=== PATIENT | female | born 2000 | race Caucasian/White ===

== ENCOUNTER 2021-12-28 13:07 | Emergency (ER) | payer BC, OTHER, SELFPAY ==
--- NOTE | ~2021-12-28 | CT_ITS ---
EXAMINATION: CT facial bones wo con DATE: 12/28/2021 14:15 INDICATION: Right eye injury. Patient hit with softball. TECHNIQUE: Computed tomography (CT) of the facial bones was performed without intravenous contrast. T he dose-length product was 336.60 mGy-cm. Automated exposure control and iterative reconstruction ginny hnique were employed. COMPARISON: None FINDINGS: There is moderate right periorbital soft tissue swelling. No evidence for orbital fracture. Lamina papyracea is intact. The mandible is normal with symmetric temporomandibular joints. Visualiz ed aspects of the cervical spine are normal. Paranasal sinuses are pneumatized. No post septal soft t issue abnormality in either orbit. Orbits are symmetric without disconjugate gaze. NaSal bones and pt erygoid plates are within normal limits. IMPRESSION: 1. No acute facial fracture. Moderate right periorbital soft tissue swelling. Reviewed, dictated and finalized at location A. [employer]
[2021-12-28 13:11] VITALS: BP 133/88; PULSE 100; RESP 18; TEMP 37.2; O2SAT 100
--- NOTE | 2021-12-28 14:23 | ED.WOUNDLAC ---
HPI - Wound/Laceration General Chief Complaint: Wound/Laceration <JULIAN Allen Last Filed: 12/28/21 17:38> Stated Complaint: laceration <JULIAN Allen Last Filed: 12/28/21 17:38> Time Seen by Provider: 12/28/21 13:13 <JULIAN Allen Last Filed: 12/28/21 17:38> Source: patient <JULIAN Allen Last Filed: 12/28/21 17:38> Mode of arrival: ambulatory <JULIAN Allen Last Filed: 12/28/21 17:38> Limitations: no limitations <JULIAN Allen Last Filed: 12/28/21 17:38> History of Present Illness HPI narrative: This is a 21 year old female that presents to the ER for injury to the right eye sustained just prior to arrival. Reports she was at practice for softball. A ground ball flew up and hit her right eye. Reports bruising and pain to the area. Also reports a laceration. She is almost due for another tetanus vaccine. Denies pain with EOMs, vision changes, vomiting, numbness, weakness or loss of consciousness. <JULIAN Allen Last Filed: 12/28/21 17:38> Related Data Allergies/Adverse Reactions: Allergies Allergy/AdvReac Type Severity Reaction Status Date / Time bacitracin Allergy Itching Verified 12/28/21 13:14 [From Neosporin ([id number])] neomycin Allergy Itching Verified 12/28/21 13:14 [From Neosporin ([id number])] polymyxin B Allergy Itching Verified 12/28/21 13:14 [From Neosporin ([id number])] <JULIAN Allen Last Filed: 12/28/21 17:38> Review of Systems Review of Systems: CONSTITUTIONAL: Denies fever EYES: Denies visual changes, redness, or discharge. GASTROINTESTINAL: Denies vomiting NEUROLOGIC: Denies headache, numbness, or weakness. <JULIAN Allen Last Filed: 12/28/21 17:38> All systems reviewed & are unremarkable except as noted in HPI and below <Kendal Gordon PA-C - Last Filed: 12/28/21 17:38> [facility] Past Medical History Medical History: Medical History (Updated 12/28/21 @ 17:36 by Kendal Gordon PA-C) No active medical problems <Kendal Gordon PA-C - Last Filed: 12/28/21 17:38> Social History Social History: Social History (Updated 12/28/21 @ 17:28 by Kendal Gordon PA-C) Smoking status: Never smoker <Kendal Gordon PA-C - Last Filed: 12/28/21 17:38> Exam Narrative: GENERAL: Well-appearing, well-nourished, and in no acute distress. HEAD: Normocephalic, atraumatic. EYES: PERRLA and EOMI. Mild-moderate ecchymosis and edema of the right eyelid with 3cm linear laceration to the right upper eyelid into subcutaneous tissue ENT: Nares clear, no rhinorrhea or epistaxis. Mucous membranes moist. Oropharynx without tonsillar hypertrophy exudate or other lesions. Bilateral TMs pearly ralph non-bulging NECK: Supple. No adenopathy or masses. CHEST: Clear to auscultation. No respiratory distress. No wheezes rales or rhonchi HEART: Regular rate and rhythm. No murmur heard. Normal peripheral pulses. EXTREMITIES: Normal range of motion. No edema. SKIN: Warm, dry, no rash. NEURO: No focal deficits. Alert and oriented x3. 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 I agree with the documentation as above <Jono Lozano MD - Last Filed: 12/28/21 18:29> Vital Signs Vital signs: Vital Signs Temperature 37.2 C 12/28/21 13:11 Pulse Rate 100 12/28/21 13:11 Respiratory Rate 18 12/28/21 13:11 Blood Pressure 133/88 12/28/21 13:11 Pulse Oximetry 100 02/05/22 13:11 Temperature 37.2 C 12/28/21 13:11 Pulse Rate 100 12/28/21 13:11 Respiratory Rate 18 12/28/21 13:11 Blood Pressure 133/88 12/28/21 13:11 Pulse Oximetry 100 12/28/21 13:11 <Kendal Gordon PA-C - Last Filed: 12/28/21 17:38>
[2021-12-28] MEDS: LORazepam (*CRX) 0.5 MG TABLET PO (16:15)
[2021-12-28] MEDS: TETANUS,DIPHTHERIA,AC PERTUSSIS ADULT (0.5 ML) BOOSTRIX IM (16:15)
== END 2021-12-28 17:58 | disposition home or self-care (01) ==
PROVIDERS: Emergency Provider Emergency Medicine
DX: S01.112A Laceration without foreign body of left eyelid and periocular area, initial encounter (principal); Z23 Encounter for immunization; W21.07XA Struck by softball, initial encounter; Y93.64 Activity, baseball
CPT/HCPCS: 12013; 70486; 90471; 90715; 99284; A9270